=== PATIENT | female | born 1940 | race Caucasian/White ===

== ENCOUNTER 2016-11-27 09:12 | Inpatient (IN) | payer OTHER ==
[~2016-11-27] VITALS: Ht 144.8 cm; Wt 39.3 kg
[~2016-11-27 09:12] MED LIST: ATOR10TA65 PO; FERR240T9 PO; LISI-327 PO
[2016-11-27] MEDS ORDERED: SOD CHLORIDE 0.9% 1,000 ML IV STA (09:47)
[2016-11-27 10:41] LABS: ABNORMAL IP MESSAGE 1; BASOPHILS % 0.2 % (0.0-2.0); EOSINOPHILS % 0.1 % (0.0-7.0); HEMATOCRIT 33.7 % (37.0-47.0); HEMOGLOBIN 11.6 g/dl (12.0-16.0); LYMPHOCYTES # 0.5 10^3/ul (0.8-2.9); LYMPHOCYTES % 3.1 % (15.0-51.0); MEAN CORPUSCULAR HEMOGLOBIN 29.4 pg (29.0-33.0); MEAN CORPUSCULAR HGB CONC 34.4 g/dl (32.0-37.0); MEAN CORPUSCULAR VOLUME 85.3 fl (82.0-101.0); MEAN PLATELET VOLUME 9.1 fl (7.4-10.4); MONOCYTE # 2.6 10^3/ul (0.3-0.9); NEUTROPHIL # 12.1 10^3/ul (1.6-7.5); NEUTROPHILS % 78.8 % (39.0-77.0); PLATELET COUNT 317 10^3/UL (140-415); RED BLOOD COUNT 3.95 10^6/ul (4.20-5.40); RED CELL DISTRIBUTION WIDTH 13.8 % (11.5-14.5); WHITE BLOOD COUNT 15.3 10^3/ul (4.8-10.8)
[2016-11-27 10:42] LABS: POSITIVE DIFF @See below
[2016-11-27 10:57] LABS: PT RATIO 1.1
[2016-11-27] MEDS ORDERED: NOL20 PO (10:57)
[2016-11-27] MEDS ORDERED: CALC500T11 PO (10:58)
[2016-11-27] MEDS ORDERED: MULT-902 PO (10:58)
[2016-11-27 10:59] LABS: ALBUMIN 4.3 g/dl (3.3-4.9); ALBUMIN/GLOBULIN RATIO 1.43; CALCIUM 9.9 mg/dl (8.4-10.2); CREATININE 0.45 mg/dl (0.44-1.00); PARTIAL THROMBOPLASTIN TIME 30.6 Sec (25.0-35.0); POTASSIUM 3.3 mmol/L (3.5-5.1); TOTAL PROTEIN 7.3 g/dl (6.1-8.1)
[2016-11-27 11:15] LABS: PROTIME 14.2 Sec (12.2-14.2)
[2016-11-27 11:16] LABS: INR 1.1
--- NOTE | 2016-11-27 11:52 | RADRPT ---
AMENDMENT: 11/27/2016 11:56:01 AM Morris Stubbs M.D The above findings were discussed with Patient's physician Emily Morin by on 11/27/2016 11:56: 00 AM. PROCEDURE: CT Lumbar Spine without contrast. CLINICAL INDICATION: Lumbar spine pain status post fall. TECHNIQUE: The study was performed on a multislice multidetector CT scanner. Spiral axial 1 mm im ages were obtained through the lumbar spine without intravenous contrast. 1 or more of the following dose reduction techniques were utilized: Automated exposure control, adjustment of the mA and/or k V according to patient's size, iterative reconstruction technique. Coronal and sagittal reformation s were obtained. The images were reviewed on a PACS workstation. RADIATION DOSE: CTDIvol: 4.3 mGyDLP: 128.1 mGy-cm COMPARISON: No prior studies are available for comparison. FINDINGS: There is diffuse severe spondylosis from L3-4 to L5-S1. There is a severe left convex scoliosis cent ered at L4 with asymmetric right-sided disc-space height at L3-4 45. There are associated moderate d iscogenic endplate changes at these levels. There is a mild right convex scoliosis centered at L5-S1 with severe right-sided disc-space height loss. Partial visualization of the T10 vertebral body at the superior margin of the film demonstrates a central compression deformity, with possible linear l ow density in the posterior aspect of the body (sagittal series image), concerning for possible acut e fracture. The. There is 10% right-sided vertebral body height loss at L4, likely related to the se jaxon spondylosis. The remaining vertebral body heights are maintained. There is diffuse moderate ost eopenia. There are diffuse calcified posterior discs at L1-2, L2-3, and L4-5. There are mild degener ate changes of the interspinous articulations from L2-L5 The paraspinal soft tissues unremarkable. No significant paraspinal soft tissue swelling. L1-L2: There is a 2-3 mm annular disc bulge the thecal sac is patent measuring 9.7 mm midline AP di ameter. There is mild narrowing of both lateral recesses. There is mild to moderate left and mild ri ght neural foraminal narrowing. There is mild bilateral facet spondylosis with buckling ligamentum f lavum. L2-L3: There is a 5-6 mm annular disc bulge. The thecal sac measures, measuring 6.5 mm in midline AP diameter. There is severe narrowing of 12 lateral recesses. There is moderate to severe bilater al neural foraminal narrowing. There is moderate bilateral facet spondylosis with buckling ligament um flavum. L3-L4: There is a 4-5 mm annular disc bulge asymmetric to the right foraminal region. There is mild to moderate bilateral facet hypertrophy. The thecal sac measures 7.7 mm midline AP diameter. There is severe right and moderate left lateral recess narrowing. There is severe right and mild to modera te left neural foraminal narrowing. L4-L5: There is a 6-7 mm right foraminal/far lateral disc bulge. There is moderate bilateral facet spondylosis with prominent buckling of the ligamentum flavum. The thecal sac measures 7.0 mm midline AP diameter. There is severe narrowing of both lateral recesses, right worse than left. There is se jaxon right and moderate left neural foraminal narrowing. L5-S1: There is a 4 mm annular disc bulge asymmetric to the left foraminal/far lateral region. The thecal sac is patent. There is moderate left lateral recess narrowing. The right lateral recess bunny ears patent. There is severe left and moderate to severe right neural foraminal narrowing. IMPRESSION: 1. Central compression deformity of the T10 vertebral body, age indeterminate. There is a linear lo w density in the posterior aspect of the vertebral body, concerning for possible acute fracture. MRI is recommended for further evaluation. 2. Chronic 10% right L4 vertebral body compression deformity, likely related to severe spondylosis. If clinical concern for acute fracture, MRI would be helpful for further evaluation. 3. Multilevel moderate to severe spondylosis from L2-3 to L5-S1 with severe spinal stenosis at L2-3 and moderate to severe spinal stenosis at L3-4 and L4-5. There are associated lateral recess narrow ings at these levels. 4. Multilevel facet spondylosis superimposed on S-shaped scoliosis with severe narrowing of the olesya ateral L2-3, right L3-4, right L4-5 and left L5-S1 foramina. RPTAT: HGAS .Js Sigmund, MD, MD Date Time Electronically viewed and signed by .Js Stubbs MD, on 11/27/2016 11:56 .S/
--- NOTE | 2016-11-27 12:13 | ERA ---
ER Documentation Chief Complaint Date/Time DATE: 11/27/16 TIME: 12:08 Chief Complaint MECHANICAL FALL ON TRACEE VANESSA This is a very pleasant 76-year-old female who lives alone and is able to attend her activities of daily living with a history of high cholesterol and osteopenia. She presents to the emergency department brought in by EMS after she stated she had a mechanical fall while getting up from her bed to go to the bathroom just prior to arrival. She landed on a carpeted surface. She stated she did not hit her head or lose consciousness. She is complaining of severe pain in her lower back. She was unable to get up to ambulate and when 911 arrived they stated the patient had no complaints of neck pain or numbness that the pain was localized to the mid and lower back. She denies any chest pain or pressure that radiates to the neck or back or jaw. ROS All systems reviewed and are negative except as per history of present illness. Medications Home Meds Reported Medications Multivitamin/Iron/Folic Acid (Centrum Adults Tablet) 1 Each Tablet, 1 EACH PO DAILY, TAB 11/27/16 Calcium Carbonate (Oysco-500) 500 Mg Tablet, 500 MG PO DAILY, TAB 11/27/16 Tamoxifen Citrate* (Tamoxifen Citrate*) 20 Mg Tab, 20 MG PO DAILY, TAB 11/27/16 Lisinopril-Hydrochlorothiazide (Lisinopril-HCTZ) 20-12.5 Mg Tab, 1 TAB PO DAILY , TAB 06/16/14 Ferrous Gluconate (Iron) 1 Tab Tablet, 1 TAB PO DAILY 06/16/14 Atorvastatin Calcium (Atorvastatin Calcium) 10 Mg Tab, 10 MG PO HS, TAB 06/16/14 Allergies Allergies: Coded Allergies: aspirin (Unverified Allergy, Severe, 11/27/16) ciprofloxacin (Unverified Allergy, Severe, 11/27/16) codeine (Verified Allergy, Mild, DIZZY, 06/16/14) Uncoded Allergies: [id number] (ADVIL) (Allergy, Mild, NOSEBLEED, 03/20/10) PMhx/Soc History of Surgery: No Anesthesia Reaction: No Hx Neurological Disorder: No Hx Respiratory Disorders: No Hx Cardiac Disorders: Yes (HIGH CHOLESTEROL, HTN) Hx Psychiatric Problems: No Hx Miscellaneous Medical Probl: No Hx Alcohol Use: Yes Hx Substance Use: No Hx Tobacco Use: No Smoking Status: Never smoker Physical Exam Vitals Vital Signs Date Time Temp Pulse Resp B/P Pulse Ox O2 Delivery O2 Flow Rate FiO2 11/27/16 09:17 98.0 107 18 134/82 98 Physical Exam Constitutional:Well-developed. Cachectic HEENT:Normocephalic. Atraumatic.Pupils were equal round reactive to light. Dry mucous membranes.No tonsillar exudates. Neck: No nuchal rigidity. No lymphadenopathy. No posterior cervical spine tenderness or step-offs. Respiratory: Not using accessory muscles of respiration.Lungs were clear to auscultation bilaterally. No rhonchi. No rales. No wheezing. Cardiovascular: Regular rate regular rhythm.No murmurs. No rubs were appreciated.S1, S2 normal. Distal pulses are palpable 2+ bilaterally. GI: Abdomen was soft. Nontender. Non Distended. No pulsatile abdominal masses or bruits. No rebound. No guarding. Bowel sounds were present and normal. Muscle skeletal: She had full range of motion of the upper and lower extremities. No laxity on anterior posterior or lateral compression of the hip. The patient was unable to ambulate due to severe pain and there is reproducible tenderness with palpation and percussion of the thoracic spinal level T10-T11 and L4 L5-S1. Skin: No petechia, no purpura. No lesions on the palms or the soles of the feet. No maculopapular rash. NEURO: Patient was alert, awake, orientated x3.No facial droop. Gait not observed due to severe pain..Speech had regular rate and rhythm. No focal neurological deficits. Result Diagram: 11/27/16 1032 11/27/16 1032 Results 24 hrs Laboratory Tests Test 11/27/16 10:32 White Blood Count 15.310^3/ul Red Blood Count 3.9510^6/ul Hemoglobin 11.6g/dl Hematocrit 33.7% Mean Corpuscular Volume 85.3fl Mean Corpuscular Hemoglobin 29.4pg Mean Corpuscular Hemoglobin Concent 34.4g/dl Red Cell Distribution Width 13.8% Platelet Count 08807^3/UL Mean Platelet Volume 9.1fl Neutrophils % 78.8% Lymphocytes % 3.1% Monocytes % 17.0% Eosinophils % 0.1% Basophils % 0.2% Nucleated Red Blood Cells % 0.0/100WBC Neutrophils # 12.110^3/ul Lymphocytes # 0.510^3/ul Monocytes # 2.610^3/ul Eosinophils # 0.010^3/ul Basophils # 0.010^3/ul Nucleated Red Blood Cells # 0.010^3/ul Prothrombin Time 14.2Sec Prothrombin Time Ratio 1.1 INR International Normalized Ratio 1.10 Activated Partial Thromboplast Time 30.6Sec Sodium Level 129mmol/L Potassium Level 3.3mmol/L Chloride Level 93mmol/L Carbon Dioxide Level 25mmol/L Anion Gap 14 Blood Urea Nitrogen 8mg/dl Creatinine 0.45mg/dl Glucose Level 125mg/dl Calcium Level 9.9mg/dl Total Bilirubin 1.0mg/dl Direct Bilirubin 0.00mg/dl Indirect Bilirubin 1.0mg/dl Aspartate Amino Transf (AST/SGOT) 31IU/L Alanine Aminotransferase (ALT/SGPT) 29IU/L Alkaline Phosphatase 57IU/L Total Protein 7.3g/dl Albumin 4.3g/dl Globulin 3.00g/dl Albumin/Globulin Ratio 1.43 Current Medications Medications (Trade) Dose Ordered Sig/Akash Route PRN Reason Start Time Stop Time Status Last Admin Dose Admin Sodium Chloride (NS) 1,000 ml @ 1,000 mls/hr Q1H STAT IV 11/27/16 09:47 11/27/16 10:46 DC 11/27/16 10:32 Procedures/MDM Patient presented to the emergency department with a mechanical ground-level fall prior to arrival. The patient was in a significant amount discomfort and immediately had IV access established by nursing staff placed on a cardiac nurse with continuous pulse oximetry. The patient ancillary laboratory work performed which showed hypernatremia but the patient appeared to be asymptomatic. She was treated with IV fluid normal saline. Given the severity of the patient's pain CT scan of the patient's pelvis and lumbar spine was ordered and reviewed by myself and the radiologist. The patient did appear to have a T10 fracture. I spoke with the radiologist and he did suggest an MRI of the thoracic and lumbar spine which is currently pending. I have placed a neurosurgical consult to Dr. Marie. The patient will be admitted in serious condition under the care of , with an anticipated stay of greater than 2 midnights. Given that the patient is nonambulatory she had a Gavin catheter placed and urinalysis is currently pending. The patient leukocytosis which was thought to be secondary to an acute stress reaction as the patient had no evidence of an infectious process. One view chest radiograph is also ordered and reviewed by myself and showed no evidence of a pneumothorax or rib fractures. Departure Diagnosis: Primary Impression: Fall with significant injury Qualified Code: W19.XXXA - Fall with significant injury, initial encounter Additional Impressions: Thoracic spine fracture Qualified Code: S22.070A - Closed wedge compression fracture of tenth thoracic vertebra, initial encounter Hyponatremia Condition: Serious JULES LE Nov 27, 2016 12:13
--- NOTE | 2016-11-27 12:15 | RADRPT ---
PROCEDURE: CT pelvis without contrast. CLINICAL INDICATION: Fall TECHNIQUE: CT scan of the pelvis without contrast was performed. The patient was scanned without intravenous contrast. Coronal and sagittal reformatted images were obtained from the axial source i mages. Use of iterative reconstruction technique was employed. Images were reviewed on a high-resolu tion PACS workstation. images. The calculated radiation dose measures 89.56 mGy centimeters. The CTD I measures 2.91 mGy. One or more of the following dose reduction techniques were used: - Automated exposure control. - Adjustment of the mA and/or kV according to patient size . - Use of iterative reconstruction technique. Images were reviewed on a high-resolution PACS workstation COMPARISON: None. FINDINGS: CT pelvis: Osseous structures: There is no acute osseous abnormality or CT evidence for fracture. There is a healed post fracture f orm at the left inferior pubic ramus. Moderate to severe narrowing is seen about the hip joints bila terally noting marginal productive changes and chondrocalcinosis about the joint. Small bilateral hi p joint effusions are present. Severe degenerative disc disease seen at the lower lumbar spine noting scoliosis convex left. Severe narrowing is seen at L3-L4 through L5-S1. Soft tissues: The small bowel loops situated within the pelvis are unremarkable. The pelvic organs are normal. T he pelvic sidewalls and inguinal regions are clear. The sigmoid colon and rectum are remarkable for sigmoid diverticulosis. No mass, lymphadenopathy, or free fluid is seen. No acute inflammation is seen. IMPRESSION: 1. No CT evidence for acute fracture. 2. Healed post fracture deformity of the left inferior pubic ramus. 3. Moderate bilateral hip arthrosis noting marked chondrocalcinosis. 4. Small bilateral hip joint effusions. 5. Advanced degenerative disc disease at the lower lumbar spine, better assessed on the dedicated C T from the same day. RPTAT: VV .Cesar Temple MD, MD Date Time Electronically viewed and signed by .Cesar Temple MD, MD on 11/27/2016 12:14 .d/
--- NOTE | 2016-11-27 13:15 | RADRPT ---
PROCEDURE: XR Chest. CLINICAL INDICATION: Trauma due to a fall. Chest pain. TECHNIQUE: Single frontal view. COMPARISON: None. FINDINGS: The lungs are clear. The heart size is normal. There is no pleural effusion or pneumothorax. There are severe degenerative changes of both glenohumeral joints with marked deformity. IMPRESSION: 1. Severe degenerative changes of both glenohumeral joints with marked deformity. 2. Otherwise normal chest x-ray. RPTAT: QQ .Sami Gutierres MD, Date Time Electronically viewed and signed by .Sami Gutierres MD, on 11/27/2016 13:14 .R/
--- NOTE | 2016-11-27 17:27 | HP ---
Date/Time of Note Date/Time of Note DATE: 11/27/16 TIME: 17:12 Assessment/Plan VTE Prophylaxis VTE Prophylaxis Intervention: LMWH Lines/Catheters Urinary Cath still in place: Yes Reason Cath still needed: other (indicate) (Bed rest) Assessment/Plan Assessment/Plan 76-year-old female with: 1. Status post fall with T10 compression fracture possibly acute, inability to walk, patient with multiple falls, L4 compression fracture chronic. MRI thoracic and lumbar spine pending, patient on bedrest, Gavin catheter in place. Neurosurgery evaluation pending. Pain control Continue monitoring. 2. Hyponatremia, likely hypovolemic and also secondary to medications. Discontinue hydrochlorothiazide, IV fluids ordered. Monitor sodium level 3. Hypokalemia: Check magnesium level, replete potassium orally and through IV fluids. 4. Hypertension: Resume lisinopril, discontinue hydrochlorothiazide, hydralazine as needed 5. Osteopenia Prophylaxis: Lovenox for DVT prophylaxis, Pepcid for GI prophylaxis Disposition: MRI T and L-spine pending, neurosurgery evaluation pending, further disposition depending on MRI results and neurosurgical recommendations. HPI/ROS Admit Date/Time Admit Date/Time Nov 27, 2016 at 15:50 Hx of Present Illness Chief complaint: Status post fall and inability to walk History of presenting illness: This is a 76-year-old female with history of osteopenia, hypertension, hyperlipidemia and multiple falls who was brought into the emergency department by family after she fell every day over the past 3 days and was unable to ambulate. The patient lives alone, she is able to complete all her ADLs independently although she reports that she has not taken a shower for quite a while because she is concerned she is going to fall in the bathroom. She does report multiple falls at home but over the past 3 days, she has fallen every day and was unable to ambulate. The patient reports that 3 days ago, she was sitting on the toilet and she was unable to get up, she ended up sitting on the toilet for 5 hours, she was assisted to the bed by her family members. The next day she was unable to get out of bed and actually fell off the bed. Again unable to ambulate and finally yesterday it happened again and she was mostly bedbound over the past few days. This morning, she finally agreed to come to the hospital. On CAT scan of the lumbar spine and the thoracic spine she was found to have L4 chronic compression fractures and possibly T10 acute compressions fracture and injury and given her inability to walk, neurosurgery was notified, Dr. Marie, MRI of the thoracic and lumbar spines are still pending. Patient is admitted to medical surgical bed for pain management and monitoring. Patient denies any dizziness, chest pain, nausea, vomiting, urinary complaints including dysuria or hematuria. No recent infection. No cough, no shortness of breath ROS Constitutional: no complaints Eyes: no complaints ENT: no complaints Respiratory: no complaints Cardiovascular: no complaints Gastrointestinal: no complaints Genitourinary: no complaints Musculoskeletal: no complaints Skin: no complaints Neurologic: other (Unable to walk) Endocrine: no complaints PMH/Family/Social Past Medical History Hypertension Hyperlipidemia Osteopenia Past Surgical History Status post left mastectomy remotely Status post thyroidectomy according to patient remotely Family History Significant Family History: no pertinent family hx Social History Alcohol Use: other (2-3 beers every 2 weeks) Smoking Status: Never smoker Drug Use: none Exam/Review of Systems Vital Signs Vitals Vital Signs Date Time Temp Pulse Resp B/P Pulse Ox O2 Delivery O2 Flow Rate FiO2 11/27/16 15:07 91 18 118/59 11/27/16 09:17 98.0 98 Exam Constitutional: alert, frail, oriented (x4), other (Thin, elderly) Respiratory: clear to auscultation, normal air movement Cardiovascular: nl pulses, regular rate and rhythm Gastrointestinal: non-tender, soft Musculoskeletal: nl extremities to inspection Extremities: normal pulses, other (No edema, clubbing or cyanosis) Neurological: [employer]OR [employer] II-XII intact, nl mental status, nl speech, other (Bedbound, status post T10 compression fracture) Labs Result Diagram: 11/27/16 1032 11/27/16 1032 Medications Medications See admission reconciliation medications for home medication list Procedures Procedures MENDMENT: 11/27/2016 11:56:01 AM Morris Stubbs M.D The above findings were discussed with Patient's physician Emily Morin by on 11/27/2016 11:56:00 AM. PROCEDURE: CT Lumbar Spine without contrast. CLINICAL INDICATION: Lumbar spine pain status post fall. TECHNIQUE: The study was performed on a multislice multidetector CT scanner. Spiral axial 1 mm images were obtained through the lumbar spine without intravenous contrast. 1 or more of the following dose reduction techniques were utilized: Automated exposure control, adjustment of the mA and/or kV according to patient's size, iterative reconstruction technique. Coronal and sagittal reformations were obtained. The images were reviewed on a PACS workstation. RADIATION DOSE: CTDIvol: 4.3 mGy DLP: 128.1 mGy-cm COMPARISON: No prior studies are available for comparison. FINDINGS: There is diffuse severe spondylosis from L3-4 to L5-S1. There is a severe left convex scoliosis centered at L4 with asymmetric right-sided disc-space height at L3-4 45. There are associated moderate discogenic endplate changes at these levels. There is a mild right convex scoliosis centered at L5-S1 with severe right-sided disc-space height loss. Partial visualization of the T10 vertebral body at the superior margin of the film demonstrates a central compression deformity, with possible linear low density in the posterior aspect of the body (sagittal series image), concerning for possible acute fracture. The. There is 10% right-sided vertebral body height loss at L4, likely related to the severe spondylosis. The remaining vertebral body heights are maintained. There is diffuse moderate osteopenia. There are diffuse calcified posterior discs at L1-2 , L2-3, and L4-5. There are mild degenerate changes of the interspinous articulations from L2-L5 The paraspinal soft tissues unremarkable. No significant paraspinal soft tissue swelling. L1-L2: There is a 2-3 mm annular disc bulge the thecal sac is patent measuring 9.7 mm midline AP diameter. There is mild narrowing of both lateral recesses. There is mild to moderate left and mild right neural foraminal narrowing. There is mild bilateral facet spondylosis with buckling ligamentum flavum. L2-L3: There is a 5-6 mm annular disc bulge. The thecal sac measures, measuring 6.5 mm in midline AP diameter. There is severe narrowing of 12 lateral recesses. There is moderate to severe bilateral neural foraminal narrowing. There is moderate bilateral facet spondylosis with buckling ligamentum flavum. L3-L4: There is a 4-5 mm annular disc bulge asymmetric to the right foraminal region. There is mild to moderate bilateral facet hypertrophy. The thecal sac measures 7.7 mm midline AP diameter. There is severe right and moderate left lateral recess narrowing. There is severe right and mild to moderate left neural foraminal narrowing. L4-L5: There is a 6-7 mm right foraminal/far lateral disc bulge. There is moderate bilateral facet spondylosis with prominent buckling of the ligamentum flavum. The thecal sac measures 7.0 mm midline AP diameter. There is severe narrowing of both lateral recesses, right worse than left. There is severe right and moderate left neural foraminal narrowing. L5-S1: There is a 4 mm annular disc bulge asymmetric to the left foraminal/far lateral region. The thecal sac is patent. There is moderate left lateral recess narrowing. The right lateral recess appears patent. There is severe left and moderate to severe right neural foraminal narrowing. IMPRESSION: 1. Central compression deformity of the T10 vertebral body, age indeterminate. There is a linear low density in the posterior aspect of the vertebral body, concerning for possible acute fracture. MRI is recommended for further evaluation. 2. Chronic 10% right L4 vertebral body compression deformity, likely related to severe spondylosis. If clinical concern for acute fracture, MRI would be helpful for further evaluation. 3. Multilevel moderate to severe spondylosis from L2-3 to L5-S1 with severe spinal stenosis at L2-3 and moderate to severe spinal stenosis at L3-4 and L4- 5. There are associated lateral recess narrowings at these levels. 4. Multilevel facet spondylosis superimposed on S-shaped scoliosis with severe narrowing of the bilateral L2-3, right L3-4, right L4-5 and left L5-S1 foramina. RPTAT: HGAS LEONARDO SHETTY Nov 27, 2016 17:22
[2016-11-27] MEDS ORDERED: DOCUSATE SODIUM 100 MG CAP PO PRN (17:30)
[2016-11-27] MEDS ORDERED: HYDROCODONE/APAP (5/325) TAB PO PRN (17:30)
[2016-11-27] MEDS ORDERED: ACETAMINOPHEN 325 MG TAB PO PRN (17:30)
[2016-11-27] MEDS ORDERED: ONDANSETRON 4 MG INJ IV PRN (17:30)
[2016-11-27] MEDS ORDERED: BISACODYL 10 MG SUPP PR PRN (17:30)
[2016-11-27] MEDS ORDERED: NACL 0.9% 3 ML SYG IV SCH (17:30)
[2016-11-27] MEDS ORDERED: POTASSIUM CHLORIDE (SR) 20 MEQ TAB PO STA (17:32)
[2016-11-27 17:38] VITALS: Ht 144.8 cm; Wt 39.3 kg
[2016-11-27] MEDS: morphine 2 MG INJ IV PRN (17:51)
[2016-11-27] MEDS ORDERED: hydrALAzine 20 MG INJ IV PRN (18:00)
[2016-11-27 18:27] VITALS: BP 129/80; PULSE 86; RESP 20
[2016-11-27 20:09] VITALS: BP 115/64; RESP 20
[2016-11-27] MEDS: NS + KCL 20 MEQ 1,000 ML IV SCH (20:24)
[2016-11-27] MEDS: ATORVASTATIN 10 MG TAB PO SCH (20:24)
[2016-11-27] MEDS: FAMOTIDINE 20 MG TAB PO SCH (20:25)
--- NOTE | 2016-11-27 20:52 | RADRPT ---
PROCEDURE: MRI thoracic spine without contrast CLINICAL INDICATION: Follow-up thoracic fracture TECHNIQUE: An MRI of the thoracic spine was performed on a GE 3.0 Niru MRI scanner utilizing the following sequences: Sagittal and axial T1 weighted, sagittal and axial T2 weighted, and sagittal T2 fat saturation COMPARISON: CT lumbar spine 11/27/2016 FINDINGS: There is a normal kyphosis of the thoracic spine. The vertebral body heights are remarkable for 8 c hronic appearing compression fracture deformity of the T10 vertebral body with approximately 50% tonie tebral body height loss centrally. A large Schmorl's node is also noted at the superior endplate of T10. No evidence for fractures of the T12 vertebral body are noted. The vertebral body signal intens ities are normal. The intervertebral discs demonstrate disc desiccation at the T1-2 through L2-3 lev els. The visualized posterior elements are intact and well aligned. The thoracic cord terminates no rmally at the L1-2 level. The visualized paravertebral soft tissues are normal. At all axial levels imaged in the thoracic spine, no focal disc extrusions, central canal, subarticular recess or neural foraminal stenosis is present. At T12-L1: A 2 mm annular bulge is present. The central canal, subarticular recess and neural isabel en are patent. L1-2: A 4 mm moderate broad-based bulge is present. AP canal dimension is 9.7 mm. This results in a mild central, bilateral subarticular recess stenosis and mild right and moderate left neural forami nal stenosis. L2-3: A large 5 mm broad-based bulge is present. Mild bilateral facet arthropathy and facet effusio ns are present. AP canal dimension is approximately 6.1 mm. This results in a moderate central canal stenosis, bilateral severe subarticular recess stenosis and severe bilateral neural foraminal steno sis. IMPRESSION: 1. No evidence for acute fractures , traumatic subluxations or significant stenosis within the tho racic spine. 2. Chronic T10 vertebral body compression fracture with approximately 50% vertebral body height lo ss. 3. Multilevel broad-based bulges at the T12-L1 through L2-3 levels with moderate to severe central canal stenosis at L2-3 and mild at L1-2. RPTAT: HD .Chantell Li MD, MD Date Time Electronically viewed and signed by .Chantell Li MD, MD on 11/27/2016 20:51 .C/
--- NOTE | 2016-11-27 21:31 | CONS ---
Date/Time of Note Date/Time of Note DATE: 11/27/16 TIME: 21:25 Assessment/Plan Assessment/Plan Problems: (1) Thoracic spine fracture Status: Acute Qualifiers: Qualified Code: S22.070A - Closed wedge compression fracture of tenth thoracic vertebra, initial encounter Additional Assessment/Plan imaging suggests chronic fracture with ~50% loss of height and no significant canal compromise. possibly related to osteopenia/ osteoporosis. May wish to consider calcium supplementation or further work up for osteoporosis. Stable fracture pattern in any event, not requiring intervention. Consider kyphoplasty by IR if patient pain recurs, though generally kyphoplasty success rate for chronic fractures very low. In any event this patient does not need any neurosurgical intervention. I will sign off thank you. Consultation Date/Type/Reason Admit Date/Time Nov 27, 2016 at 15:50 Date of Consultation: Nov 27, 2016 Type of Consultation: neurosurgery Reason for Consultation T10 fracture Hx of Present Illness 76 year old female was admitted s/p [facility] with complaint of back pain. At the present time she denies any back pain. CT showed T10 compression fracture, "possibly acute", so an MRI was recommended. The MRI confirms 1) chronic fracture, 2) no impingement of the neural elements. Neurosurgery consultation requested for this chronic finding in a cachectic 76 year old who no longer complains of back pain and has no neurologic complaints, deficits, or canal compromise on MRI. Eyes: no complaints ENT: no complaints Respiratory: no complaints Cardiovascular: no complaints Gastrointestinal: no complaints Genitourinary: no complaints Musculoskeletal: no complaints Skin: no complaints Neurologic: other (Unable to walk) Social History Alcohol Use: other (2-3 beers every 2 weeks) Smoking Status: Never smoker Drug Use: none Exam/Review of Systems Vital Signs Vitals Vital Signs Date Time Temp Pulse Resp B/P Pulse Ox O2 Delivery O2 Flow Rate FiO2 11/27/16 20:22 98.9 11/27/16 20:09 104 20 115/64 97 11/27/16 18:27 Room Air Exam Constitutional: frail Psych: depression Head: atraumatic, normocephalic Eyes: EOMI, nl conjunctiva, nl lids ENMT: nl external ears & nose, nl lips & teeth Neck: non-tender, supple Neurological: OPEN SOAPER TENDER II-XII intact, nl mental status, nl speech, nl strength Skin: nl turgor, rash or lesions Results Result Diagram: 11/27/16 1032 11/27/16 1032 Results 24 hrs Laboratory Tests Test 11/27/16 10:32 White Blood Count 15.3 #H Red Blood Count 3.95 L Hemoglobin 11.6 L Hematocrit 33.7 L Mean Corpuscular Volume 85.3 Mean Corpuscular Hemoglobin 29.4 Mean Corpuscular Hemoglobin Concent 34.4 Red Cell Distribution Width 13.8 # Platelet Count 317 Mean Platelet Volume 9.1 Neutrophils % 78.8 H Lymphocytes % 3.1 L Monocytes % 17.0 H Eosinophils % 0.1 Basophils % 0.2 Nucleated Red Blood Cells % 0.0 Neutrophils # 12.1 H Lymphocytes # 0.5 L Monocytes # 2.6 H Eosinophils # 0.0 Basophils # 0.0 Nucleated Red Blood Cells # 0.0 Prothrombin Time 14.2 Prothrombin Time Ratio 1.1 INR International Normalized Ratio 1.10 Activated Partial Thromboplast Time 30.6 Sodium Level 129 L Potassium Level 3.3 L Chloride Level 93 L Carbon Dioxide Level 25 Anion Gap 14 Blood Urea Nitrogen 8 Creatinine 0.45 Glucose Level 125 Calcium Level 9.9 Total Bilirubin 1.0 Direct Bilirubin 0.00 Indirect Bilirubin 1.0 Aspartate Amino Transf (AST/SGOT) 31 Alanine Aminotransferase (ALT/SGPT) 29 Alkaline Phosphatase 57 Total Protein 7.3 Albumin 4.3 Globulin 3.00 Albumin/Globulin Ratio 1.43 Medications Medications Current Medications Atorvastatin Calcium (Lipitor) 10 mg HS PO Last administered on 11/27/16t 20:24 ; Admin Dose 10 MG; Start 11/27/16 at 21:00 Calcium Carbonate (Oyster Shell Calcium) 1.25 gm DAILY PO ; Start 11/28/16 at 09 :00 Tamoxifen Citrate (Nolvadex) 20 mg DAILY PO ; Start 11/28/16 at 09:00 Ondansetron HCl (Zofran Inj) 4 mg Q6H PRN IV NAUSEA AND/OR VOMITING; Start at 17:30 Acetaminophen (Tylenol Tab) 650 mg Q6H PRN PO PAIN LEVEL 1-3 OR FEVER; Start at 17:30 Acetaminophen/ Hydrocodone Bitart (Pound (5/325)) 1 tab Q6H PRN PO MODERATE PAIN LEVEL 4-6; Start 11/27/16 at 17:30 Acetaminophen/ Hydrocodone Bitart (Pound (5/325)) 2 tab Q6H PRN PO SEVERE PAIN LEVEL 7-10; Start 11/27/16 at 17:30 Morphine Sulfate (morphine) 2 mg Q4H PRN IV SEVERE PAIN LEVEL 7-10 Last administered on 11/27/16 17:51; Admin Dose 2 MG; Start 11/27/16 at 17:30 Docusate Sodium (Colace) 100 mg Q12H PRN PO CONSTIPATION; Start 11/27/16 at 17: 30 Magnesium Hydroxide (Milk Of Mag) 30 ml DAILY PRN PO CONSTIPATION; Start at 17:30 Bisacodyl (Dulcolax Supp) 10 mg DAILY PRN ME CONSTIPATION; Start 11/27/16 at 17 :30 Famotidine (Pepcid) 20 mg Q12 PO Last administered on 11/27/16 20:25; Admin Dose 20 MG; Start 11/27/16 at 21:00 Enoxaparin Sodium (Lovenox) 40 mg DAILY SC ; Start 11/28/16 at 09:00 Multivitamins Therapeutic (Theragran) 1 tab DAILY PO ; Start 11/28/16 at 09:00 Ferrous Sulfate (Ferrous Sulfate (Ec)) 325 mg DAILY PO ; Start 11/28/16 at 09:00 Hydralazine HCl (Apresoline) 10 mg Q8H PRN IV ELEVATED BLOOD PRESSURE; Start at 18:00 Lisinopril 10 mg 10 mg DAILY PO ; Start 11/28/16 at 09:00 Potassium Chloride/Sodium Chloride (NS-KCl 20 Meq) 1,000 ml @ 100 mls/hr Q10H IV Last administered on 11/27/16 20:24; Admin Dose 100 MLS/HR; Start 11/27/16 at 18:00 MERY LOPES MD Nov 27, 2016 21:31
--- NOTE | 2016-11-27 22:34 | RADRPT ---
PROCEDURE: MRI lumbar spine CLINICAL INDICATION: Back pain and suspect T12 fracture TECHNIQUE: An MRI of the lumbar spine was performed on a high resolution high definition, MRI scan ner utilizing the following sequences: Sagittal T1 weighted, sagittal and axial T2 weighted, and sa gittal T2 weighted with fat saturation. COMPARISON: CT lumbar spine 11/27/2016 FINDINGS: There is diffuse severe spondylosis and levoscoliosis again noted from the L3-4 through L5-S1 levels with apex at the L3-4 level. Grade 1 spondylolisthesis of 3 mm of L5 on S1 is present without evide nce for spondylolysis. Preservation of vertebral body heights are noted with Modic type 2 degenerati ve endplate changes at L2-3 through L5-S1 levels. Again noted is approximately 10% right-sided verte bral body height loss at L4 secondary to severe spondylosis of the lumbar spine. The intervertebral discs demonstrate disc desiccation from T12-L5 with severe disc space height loss and degenerative c hanges at L3-4 through L5-S1 levels. Moderate disc space height loss is noted at L2-3. The conus m edullaris terminates normally at the L1 level. The bilateral paravertebral soft tissues are normal. The specific axial levels are as follows: T12 - L1: Disc desiccation is present with a mild 2 mm broad-based bulge. Mild bilateral facet arth ropathy is present. The central canal, subarticular recesses are patent. Mild bilateral neural isabel inal stenosis is present . L1 - L2: Disc desiccation is present. A mild 2 mm broad-based bulge is present. Moderate bilateral facet arthropathy and ligamentum hypertrophy is present. AP canal dimension is 10 mm. This results i n a mild central canal stenosis, bilateral subarticular recess stenosis, mild to moderate left neura l foraminal stenosis and mild right neural foraminal stenosis is present. L2 - L3: Disc desiccation is present with mild disc space height loss. A mild 3 mm broad-based bulg e is present. Moderate bilateral facet arthropathy and ligamentum hypertrophy is present. AP canal d imension is 5.4 mm. This results in a severe central canal stenosis, bilateral subarticular recess s tenosis and severe bilateral neural foraminal stenosis. L3 - L4: Severe degenerative endplate and disc desiccation is present with severe disc space height loss. A 5 mm right subarticular recess disc osteophyte complex is present superimposed on an eccent lidia 3 mm bulge to the left. AP canal dimension is 7.8 mm. Moderate bilateral facet arthropathy is pr esent. This results in a moderate central canal stenosis, severe right and moderate left subarticula r recess stenosis, and severe right and moderate left neural foraminal stenosis. L4 - L5: Severe degenerative endplate changes disc desiccation and disc space height loss is presen t. A 4 mm moderate broad-based bulge is present. Moderate bilateral facet arthropathy is present. AP canal dimension is 7.9 mm. Moderate central canal stenosis, severe bilateral subarticular recess st enosis and severe right greater than left neural foraminal stenosis. L5 - S1: Severe disc space height loss degenerative endplate and disc desiccation is present. Grade 1 spondylolisthesis of L5 and S1 is again noted without evidence for spondylolysis per 4 mm moderat e osteophytic bar and bulge is present. AP canal dimension is 10 mm. Mild central canal stenosis, mo derate left subarticular recess stenosis, and severe left greater than right neural foraminal stenos is is present. IMPRESSION: 1. No evidence for acute fractures or traumatic subluxations. 2. Severe levoscoliosis with apex at the L3-4 level and grade 1 spondylolisthesis of L5 and S1 with out evidence for spondylolysis. 3. Multilevel broad-based disc bulges at the T12-L1 through L5-S1 levels with severe central canal stenosis at L2-3, moderate L3-4 and L4-5 and mild at L1-2 and L5-S1. 4. Multilevel neural foraminal stenosis at the T12-L1 through L5-S1 levels as noted above. 5. Multilevel facet and ligamentum flavum osteoarthropathy. RPTAT: HDC .Chantell Li MD, MD Date Time Electronically viewed and signed by .Chantell Li MD, MD on 11/27/2016 22:34 .C/
[2016-11-28] MEDS: HYDROCODONE/APAP (5/325) TAB PO PRN ×2 (03:34→16:01)
[2016-11-28] MEDS: NS + KCL 20 MEQ 1,000 ML IV SCH ×3 (04:00→23:48)
[2016-11-28 05:17] LABS: ABNORMAL IP MESSAGE 1; BASOPHILS % 0.2 % (0.0-2.0); HEMATOCRIT 27.9 % (37.0-47.0); HEMOGLOBIN 9.3 g/dl (12.0-16.0); LYMPHOCYTES # 0.8 10^3/ul (0.8-2.9); LYMPHOCYTES % 6.4 % (15.0-51.0); MEAN CORPUSCULAR HEMOGLOBIN 28.7 pg (29.0-33.0); MEAN CORPUSCULAR HGB CONC 33.3 g/dl (32.0-37.0); MEAN CORPUSCULAR VOLUME 86.1 fl (82.0-101.0); MEAN PLATELET VOLUME 9.9 fl (7.4-10.4); MONOCYTE # 2.6 10^3/ul (0.3-0.9); MONOCYTES % 20.1 % (0.0-11.0); NEUTROPHIL # 9.3 10^3/ul (1.6-7.5); NEUTROPHILS % 72.8 % (39.0-77.0); PLATELET COUNT 291 10^3/UL (140-415); RED BLOOD COUNT 3.24 10^6/ul (4.20-5.40); RED CELL DISTRIBUTION WIDTH 14.2 % (11.5-14.5); WHITE BLOOD COUNT 12.8 10^3/ul (4.8-10.8)
[2016-11-28 05:42] LABS: ALBUMIN/GLOBULIN RATIO 1.03; BILIRUBIN,INDIRECT 0.6 mg/dl (0-1.1); BILIRUBIN,TOTAL 0.6 mg/dl (0.2-1.3); CALCIUM 9.1 mg/dl (8.4-10.2); CHOL/HDL RATIO 1.6 RATIO; CREATININE 0.41 mg/dl (0.44-1.00); MAGNESIUM 1.4 mg/dl (1.7-2.5); PHOSPHORUS 2.9 mg/dl (2.5-4.9); POTASSIUM 4.2 mmol/L (3.5-5.1); TOTAL PROTEIN 5.9 g/dl (6.1-8.1)
[2016-11-28 05:52] LABS: POSITIVE DIFF @See below
[2016-11-28 06:07] LABS: THYROID STIMULATING HORMONE 1.13 MIU/L (0.465-4.680)
[2016-11-28] MEDS: FERROUS SULFATE (EC) 325 MG TAB PO SCH ×2 (08:35→09:30)
[2016-11-28] MEDS: MULTIVITAMINS THERAPEUTIC TAB PO SCH (08:35)
[2016-11-28] MEDS: LISINOPRIL 10 MG TAB PO SCH (08:36)
[2016-11-28] MEDS: FAMOTIDINE 20 MG TAB PO SCH ×2 (08:36→21:48)
[2016-11-28 08:40] VITALS: BP 114/56; RESP 20
[2016-11-28] MEDS: TAMOXIFEN 10 MG TAB PO SCH (08:47)
[2016-11-28] MEDS: ENOXAPARIN 40 MG/0.4 ML SYG SC SCH (08:47)
[2016-11-28] MEDS ORDERED: CALCIUM CARBONATE 1.25 GM TAB PO SCH (09:00)
[2016-11-28] MEDS ORDERED: MAGNESIUM SULFATE 4 GM/100 ML 100 ML IVPB ONE (09:00)
--- NOTE | 2016-11-28 15:43 | PN ---
Date/Time of Note Date/Time of Note DATE: 11/28/16 TIME: 15:34 Assessment/Plan VTE Prophylaxis VTE Prophylaxis Intervention: SCD's Lines/Catheters IV Catheter Type (from Nrsg): Peripheral IV Urinary Cath still in place: Yes Reason Cath still needed: other (indicate) (will discontinue ) Assessment/Plan Assessment/Plan 76-year-old female with: 1. Status post fall with T10 compression fracture chronic on MRI, inability to walk, patient with multiple falls, L4 compression fracture chronic. s/p MRI thoracic and lumbar spine. Appreciate Neurosurgery evaluation, no need for surgical intervention, PT eval and TLSO brace ordered. Pain control Will need SNF placement for PT . 2. Hyponatremia, likely hypovolemic and also secondary to medications? but Na down to 125 with IVF Discontinue IV fluids 1L fluid restriction NaCl tabs Monitor sodium level 3. Hypokalemia: repleted, repleting Mag this AM. 4. Hypertension: Continue lisinopril, discontinue hydrochlorothiazide, hydralazine as needed 5. Osteopenia: CA/VitD supplements. Prophylaxis: Lovenox for DVT prophylaxis, Pepcid for GI prophylaxis Disposition: Hyponatremia management and will need SNF placement Subjective 24 Hr Interval Summary Free Text/Dictation Patient remains stable, appreciate recs from Neurosurgery. Still with Hyponatremia and Na down to 125 PT and SNF placement tomorrow Exam/Review of Systems Vital Signs Vitals Vital Signs Date Time Temp Pulse Resp B/P Pulse Ox O2 Delivery O2 Flow Rate FiO2 11/28/16 08:40 98.5 81 20 114/56 98 11/27/16 18:27 Room Air Intake and Output 11/27/16 11/27/16 11/28/16 15:00 23:00 07:00 Intake Total 1480 ml Output Total 800 ml Balance 680 ml Exam Constitutional: alert, frail, oriented (x4), other Respiratory: clear to auscultation, normal air movement Cardiovascular: nl pulses, regular rate and rhythm Gastrointestinal: non-tender, soft Musculoskeletal: nl extremities to inspection Extremities: normal pulses, other (no edema. clubbing or cyanosis ) Neurological: MARKETING COPYWRITER II-XII intact, nl mental status, nl speech, other ( generalized weakness ) Results Result Diagram: 11/28/16 0441 11/28/16 1249 Results 24 hrs Laboratory Tests Test 11/28/16 04:41 11/28/16 12:49 White Blood Count 12.8 H Red Blood Count 3.24 L Hemoglobin 9.3 L Hematocrit 27.9 L Mean Corpuscular Volume 86.1 Mean Corpuscular Hemoglobin 28.7 L Mean Corpuscular Hemoglobin Concent 33.3 Red Cell Distribution Width 14.2 Platelet Count 291 Mean Platelet Volume 9.9 Neutrophils % 72.8 Lymphocytes % 6.4 L Monocytes % 20.1 H Eosinophils % 0.0 Basophils % 0.2 Nucleated Red Blood Cells % 0.0 Neutrophils # 9.3 H Lymphocytes # 0.8 Monocytes # 2.6 H Eosinophils # 0.0 Basophils # 0.0 Nucleated Red Blood Cells # 0.0 Sodium Level 128 L 125 L Potassium Level 4.2 Chloride Level 101 Carbon Dioxide Level 23 Anion Gap 8 Blood Urea Nitrogen 7 Creatinine 0.41 L Glucose Level 128 Calcium Level 9.1 Phosphorus Level 2.9 Magnesium Level 1.4 L Total Bilirubin 0.6 Direct Bilirubin 0.00 Indirect Bilirubin 0.6 Aspartate Amino Transf (AST/SGOT) 19 Alanine Aminotransferase (ALT/SGPT) 29 Alkaline Phosphatase 55 Total Protein 5.9 #L Albumin 3.0 #L Globulin 2.90 Albumin/Globulin Ratio 1.03 Triglycerides Level 33 Cholesterol Level 91 L LDL Cholesterol, Calculated 28 HDL Cholesterol 56 Cholesterol/HDL Ratio 1.6 Thyroid Stimulating Hormone (TSH) 1.130 Free Thyroxine 1.07 Medications Medications Current Medications Atorvastatin Calcium (Lipitor) 10 mg HS PO Last administered on 11/27/16 20:24 ; Admin Dose 10 MG; Start 11/27/16 at 21:00 Calcium Carbonate (Oyster Shell Calcium) 1.25 gm DAILY PO Last administered on 11/28/16 08:35; Admin Dose 1.25 GM; Start 11/28/16 at 09:00 Tamoxifen Citrate (Nolvadex) 20 mg DAILY PO Last administered on 11/28/16 08: 47; Admin Dose 20 MG; Start 11/28/16 at 09:00 Ondansetron HCl (Zofran Inj) 4 mg Q6H PRN IV NAUSEA AND/OR VOMITING; Start at 17:30 Acetaminophen (Tylenol Tab) 650 mg Q6H PRN PO PAIN LEVEL 1-3 OR FEVER; Start at 17:30 Acetaminophen/ Hydrocodone Bitart ([place] (5/325)) 1 tab Q6H PRN PO MODERATE PAIN LEVEL 4-6 Last administered on 11/28/16 03:34; Admin Dose 1 TAB; Start at 17:30 Acetaminophen/ Hydrocodone Bitart ([place]raine (5/325)) 2 tab Q6H PRN PO SEVERE PAIN LEVEL 7-10; Start 11/27/16 at 17:30 Morphine Sulfate (morphine) 2 mg Q4H PRN IV SEVERE PAIN LEVEL 7-10 Last administered on 11/27/16 17:51; Admin Dose 2 MG; Start 11/27/16 at 17:30 Docusate Sodium (Colace) 100 mg Q12H PRN PO CONSTIPATION; Start 11/27/16 at 17: 30 Magnesium Hydroxide (Milk Of Mag) 30 ml DAILY PRN PO CONSTIPATION; Start at 17:30 Bisacodyl (Dulcolax Supp) 10 mg DAILY PRN NE CONSTIPATION; Start 11/27/16 at 17 :30 Famotidine (Pepcid) 20 mg Q12 PO Last administered on 11/28/16 08:36; Admin Dose 20 MG; Start 11/27/16 at 21:00 Enoxaparin Sodium (Lovenox) 40 mg DAILY SC Last administered on 11/28/16 08:47 ; Admin Dose 40 MG; Start 11/28/16 at 09:00 Multivitamins Therapeutic (Theragran) 1 tab DAILY PO Last administered on 08:35; Admin Dose 1 TAB; Start 11/28/16 at 09:00 Ferrous Sulfate (Ferrous Sulfate (Ec)) 325 mg DAILY PO Last administered on 09:30; Admin Dose 325 MG; Start 11/28/16 at 09:00 Hydralazine HCl (Apresoline) 10 mg Q8H PRN IV ELEVATED BLOOD PRESSURE; Start at 18:00 Lisinopril 10 mg 10 mg DAILY PO Last administered on 11/28/16 08:36; Admin Dose 10 MG; Start 11/28/16 at 09:00 Potassium Chloride/Sodium Chloride (NS-KCl 20 Meq) 1,000 ml @ 100 mls/hr Q10H IV Last administered on 11/28/16 05:55; Admin Dose 100 MLS/HR; Start 11/27/16 at 18:00 Procedures Procedures PROCEDURE: MRI lumbar spine CLINICAL INDICATION: Back pain and suspect T12 fracture TECHNIQUE: An MRI of the lumbar spine was performed on a high resolution high definition, MRI scanner utilizing the following sequences: Sagittal T1 weighted , sagittal and axial T2 weighted, and sagittal T2 weighted with fat saturation. COMPARISON: CT lumbar spine 11/27/2016 FINDINGS: There is diffuse severe spondylosis and levoscoliosis again noted from the L3-4 through L5-S1 levels with apex at the L3-4 level. Grade 1 spondylolisthesis of 3 mm of L5 on S1 is present without evidence for spondylolysis. Preservation of vertebral body heights are noted with Modic type 2 degenerative endplate changes at L2-3 through L5-S1 levels. Again noted is approximately 10% right- sided vertebral body height loss at L4 secondary to severe spondylosis of the lumbar spine. The intervertebral discs demonstrate disc desiccation from T12-L5 with severe disc space height loss and degenerative changes at L3-4 through L5- S1 levels. Moderate disc space height loss is noted at L2-3. The conus medullaris terminates normally at the L1 level. The bilateral paravertebral soft tissues are normal. The specific axial levels are as follows: T12 - L1: Disc desiccation is present with a mild 2 mm broad-based bulge. Mild bilateral facet arthropathy is present. The central canal, subarticular recesses are patent. Mild bilateral neural foraminal stenosis is present . L1 - L2: Disc desiccation is present. A mild 2 mm broad-based bulge is present. Moderate bilateral facet arthropathy and ligamentum hypertrophy is present. AP canal dimension is 10 mm. This results in a mild central canal stenosis, bilateral subarticular recess stenosis, mild to moderate left neural foraminal stenosis and mild right neural foraminal stenosis is present. L2 - L3: Disc desiccation is present with mild disc space height loss. A mild 3 mm broad-based bulge is present. Moderate bilateral facet arthropathy and ligamentum hypertrophy is present. AP canal dimension is 5.4 mm. This results in a severe central canal stenosis, bilateral subarticular recess stenosis and severe bilateral neural foraminal stenosis. L3 - L4: Severe degenerative endplate and disc desiccation is present with severe disc space height loss. A 5 mm right subarticular recess disc osteophyte complex is present superimposed on an eccentric 3 mm bulge to the left. AP canal dimension is 7.8 mm. Moderate bilateral facet arthropathy is present. This results in a moderate central canal stenosis, severe right and moderate left subarticular recess stenosis, and severe right and moderate left neural foraminal stenosis. L4 - L5: Severe degenerative endplate changes disc desiccation and disc space height loss is present. A 4 mm moderate broad-based bulge is present. Moderate bilateral facet arthropathy is present. AP canal dimension is 7.9 mm. Moderate central canal stenosis, severe bilateral subarticular recess stenosis and severe right greater than left neural foraminal stenosis. L5 - S1: Severe disc space height loss degenerative endplate and disc desiccation is present. Grade 1 spondylolisthesis of L5 and S1 is again noted without evidence for spondylolysis per 4 mm moderate osteophytic bar and bulge is present. AP canal dimension is 10 mm. Mild central canal stenosis, moderate left subarticular recess stenosis, and severe left greater than right neural foraminal stenosis is present. IMPRESSION: 1. No evidence for acute fractures or traumatic subluxations. 2. Severe levoscoliosis with apex at the L3-4 level and grade 1 spondylolisthesis of L5 and S1 without evidence for spondylolysis. 3. Multilevel broad-based disc bulges at the T12-L1 through L5-S1 levels with severe central canal stenosis at L2-3, moderate L3-4 and L4-5 and mild at L1-2 and L5-S1. 4. Multilevel neural foraminal stenosis at the T12-L1 through L5-S1 levels as noted above. 5. Multilevel facet and ligamentum flavum osteoarthropathy. PROCEDURE: MRI thoracic spine without contrast CLINICAL INDICATION: Follow-up thoracic fracture TECHNIQUE: An MRI of the thoracic spine was performed on a [employer] BI 3.0 Niru MRI scanner utilizing the following sequences: Sagittal and axial T1 weighted, sagittal and axial T2 weighted, and sagittal T2 fat saturation COMPARISON: CT lumbar spine 11/27/2016 FINDINGS: There is a normal kyphosis of the thoracic spine. The vertebral body heights are remarkable for 8 chronic appearing compression fracture deformity of the T10 vertebral body with approximately 50% vertebral body height loss centrally. A large Schmorl's node is also noted at the superior endplate of T10. No evidence for fractures of the T12 vertebral body are noted. The vertebral body signal intensities are normal. The intervertebral discs demonstrate disc desiccation at the T1-2 through L2-3 levels. The visualized posterior elements are intact and well aligned. The thoracic cord terminates normally at the L1-2 level. The visualized paravertebral soft tissues are normal. At all axial levels imaged in the thoracic spine, no focal disc extrusions, central canal, subarticular recess or neural foraminal stenosis is present. At T12-L1: A 2 mm annular bulge is present. The central canal, subarticular recess and neural foramen are patent. L1-2: A 4 mm moderate broad-based bulge is present. AP canal dimension is 9.7 mm. This results in a mild central, bilateral subarticular recess stenosis and mild right and moderate left neural foraminal stenosis. L2-3: A large 5 mm broad-based bulge is present. Mild bilateral facet arthropathy and facet effusions are present. AP canal dimension is approximately 6.1 mm. This results in a moderate central canal stenosis, bilateral severe subarticular recess stenosis and severe bilateral neural foraminal stenosis. IMPRESSION: 1. No evidence for acute fractures , traumatic subluxations or significant stenosis within the thoracic spine. 2. Chronic T10 vertebral body compression fracture with approximately 50% vertebral body height loss. 3. Multilevel broad-based bulges at the T12-L1 through L2-3 levels with moderate to severe central canal stenosis at L2-3 and mild at L1-2. LEONARDO SHETTY Nov 28, 2016 15:43
[2016-11-28] MEDS: SODIUM CHLORIDE 1 GM TAB PO SCH ×2 (16:37→21:48)
[2016-11-28] MEDS: morphine 2 MG INJ IV PRN (19:25)
[2016-11-28 20:43] VITALS: BP 115/61; RESP 20
[2016-11-28] MEDS: ATORVASTATIN 10 MG TAB PO SCH (21:48)
[2016-11-28] MEDS: CALCIUM/VITAMIN D (500/200) TAB PO SCH (21:48)
[2016-11-29 05:12] LABS: BASOPHILS % 0.1 % (0.0-2.0); EOSINOPHILS # 0.1 10^3/ul (0.0-0.5); EOSINOPHILS % 1.3 % (0.0-7.0); HEMATOCRIT 28.5 % (37.0-47.0); HEMOGLOBIN 9.7 g/dl (12.0-16.0); LYMPHOCYTES # 0.7 10^3/ul (0.8-2.9); LYMPHOCYTES % 7.5 % (15.0-51.0); MEAN CORPUSCULAR HEMOGLOBIN 29.4 pg (29.0-33.0); MEAN CORPUSCULAR VOLUME 86.4 fl (82.0-101.0); MONOCYTE # 1.3 10^3/ul (0.3-0.9); MONOCYTES % 13.7 % (0.0-11.0); NEUTROPHIL # 7.3 10^3/ul (1.6-7.5); NEUTROPHILS % 76.8 % (39.0-77.0); PLATELET COUNT 300 10^3/UL (140-415); RED CELL DISTRIBUTION WIDTH 14.2 % (11.5-14.5); WHITE BLOOD COUNT 9.5 10^3/ul (4.8-10.8)
[2016-11-29 05:48] LABS: MAGNESIUM 1.6 mg/dl (1.7-2.5); PHOSPHORUS 2.6 mg/dl (2.5-4.9)
[2016-11-29 05:54] LABS: CALCIUM 8.7 mg/dl (8.4-10.2); CREATININE 0.37 mg/dl (0.44-1.00); POTASSIUM 3.6 mmol/L (3.5-5.1)
[2016-11-29 07:10] VITALS: BP 130/63; RESP 17
[2016-11-29] MEDS: FERROUS SULFATE (EC) 325 MG TAB PO SCH (08:52)
[2016-11-29] MEDS: LISINOPRIL 10 MG TAB PO SCH (08:52)
[2016-11-29] MEDS: CALCIUM/VITAMIN D (500/200) TAB PO SCH ×2 (08:52→21:00)
[2016-11-29] MEDS: MULTIVITAMINS THERAPEUTIC TAB PO SCH (08:52)
[2016-11-29] MEDS ORDERED: POTASSIUM CHLORIDE (SR) 20 MEQ TAB PO STA (08:52)
[2016-11-29] MEDS: FAMOTIDINE 20 MG TAB PO SCH ×2 (08:52→21:00)
[2016-11-29] MEDS: SODIUM CHLORIDE 1 GM TAB PO SCH ×3 (08:52→21:00)
[2016-11-29] MEDS: HYDROCODONE/APAP (5/325) TAB PO PRN (08:53)
[2016-11-29] MEDS: MAGNESIUM HYDROXIDE 30ML CUP PO PRN (08:53)
[2016-11-29] MEDS: TAMOXIFEN 10 MG TAB PO SCH (09:08)
[2016-11-29] MEDS: ENOXAPARIN 40 MG/0.4 ML SYG SC SCH (09:08)
[2016-11-29] MEDS ORDERED: MAGNESIUM SULFATE 4 GM/100 ML 100 ML IVPB ONE (09:30)
[2016-11-29] MEDS: morphine 2 MG INJ IV PRN (10:43)
--- NOTE | 2016-11-29 11:49 | PN ---
Date/Time of Note Date/Time of Note DATE: 11/29/16 TIME: 11:42 Assessment/Plan VTE Prophylaxis VTE Prophylaxis Intervention: LMWH Lines/Catheters IV Catheter Type (from Nrs): Saline Lock Urinary Cath still in place: No Assessment/Plan Assessment/Plan 76-year-old female with: 1. Status post fall with T10 compression fracture chronic on MRI, inability to walk, patient with multiple falls, L4 compression fracture chronic. Appreciate Neurosurgery evaluation, no need for surgical intervention, PT eval and TLSO brace ordered. Pain control, PT Will need SNF placement for PT . 2. Hyponatremia, likely hypovolemic and also secondary to medications? but Na down to 125 with IVF, d/c IVF yesterday and Na down to 122 today despite 1L fluid restriction and started on NaCl tabs Monitor sodium level today and may need dose of Tolvaptan later if keeps trending down. 3. Hypokalemia: repleting K and Mag this AM. 4. Hypertension: Continue lisinopril, hydralazine as needed 5. Osteopenia: CA/VitD supplements. Prophylaxis: Lovenox for DVT prophylaxis, Pepcid for GI prophylaxis Disposition: Hyponatremia management and will need SNF placement when Na better Subjective 24 Hr Interval Summary Free Text/Dictation Patient doing ok but Na down to 122 this AM, monitoring Na level Otherwise patient will need SNF placement once Na stable Exam/Review of Systems Vital Signs Vitals Vital Signs Date Time Temp Pulse Resp B/P Pulse Ox O2 Delivery O2 Flow Rate FiO2 11/29/16 07:10 98.1 84 17 130/63 97 11/27/16 18:27 Room Air Intake and Output 11/28/16 11/28/16 11/29/16 15:00 23:00 07:00 Intake Total 100 ml 1800 ml 360 ml Output Total 600 ml 900 ml Balance 100 ml 1200 ml -540 ml Exam Constitutional: alert, frail, oriented Respiratory: clear to auscultation, normal air movement Cardiovascular: nl pulses, regular rate and rhythm Gastrointestinal: non-tender, soft Musculoskeletal: nl extremities to inspection Extremities: normal pulses, other (no edema, clubbing or cyanosis ) Neurological: [employer] II-XII intact, nl mental status, nl speech, other (limited strength exam due to compression fx ) Results Result Diagram: 11/29/1644211/29/16442 Results 24 hrs Laboratory Tests Test 11/28/16 12:49 11/29/16 04:43 Sodium Level 125 L 122 L White Blood Count 9.5 # Red Blood Count 3.30 L Hemoglobin 9.7 L Hematocrit 28.5 L Mean Corpuscular Volume 86.4 Mean Corpuscular Hemoglobin 29.4 Mean Corpuscular Hemoglobin Concent 34.0 Red Cell Distribution Width 14.2 Platelet Count 300 Mean Platelet Volume 10.0 Neutrophils % 76.8 Lymphocytes % 7.5 L Monocytes % 13.7 H Eosinophils % 1.3 Basophils % 0.1 Nucleated Red Blood Cells % 0.0 Neutrophils # 7.3 Lymphocytes # 0.7 L Monocytes # 1.3 H Eosinophils # 0.1 Basophils # 0.0 Nucleated Red Blood Cells # 0.0 Potassium Level 3.6 Chloride Level 95 L Carbon Dioxide Level 23 Anion Gap 8 Blood Urea Nitrogen 6 L Creatinine 0.37 L Glucose Level 131 Calcium Level 8.7 Phosphorus Level 2.6 Magnesium Level 1.6 L Medications Medications Current Medications Atorvastatin Calcium (Lipitor) 10 mg HS PO Last administered on 11/28/16 21:48 ; Admin Dose 10 MG; Start 11/27/16 at 21:00 Tamoxifen Citrate (Nolvadex) 20 mg DAILY PO Last administered on 11/29/16 09: 08; Admin Dose 20 MG; Start 11/28/16 at 09:00 Ondansetron HCl (Zofran Inj) 4 mg Q6H PRN IV NAUSEA AND/OR VOMITING; Start at 17:30 Acetaminophen (Tylenol Tab) 650 mg Q6H PRN PO PAIN LEVEL 1-3 OR FEVER; Start at 17:30 Acetaminophen/ Hydrocodone Bitart ([place] (5/325)) 1 tab Q6H PRN PO MODERATE PAIN LEVEL 4-6 Last administered on 11/29/16 08:53; Admin Dose 1 TAB; Start at 17:30 Acetaminophen/ Hydrocodone Bitart ([place] (5/325)) 2 tab Q6H PRN PO SEVERE PAIN LEVEL 7-10; Start 11/27/16 at 17:30 Morphine Sulfate (morphine) 2 mg Q4H PRN IV SEVERE PAIN LEVEL 7-10 Last administered on 11/29/16 10:43; Admin Dose 2 MG; Start 11/27/16 at 17:30 Docusate Sodium (Colace) 100 mg Q12H PRN PO CONSTIPATION; Start 11/27/16 at 17: 30 Magnesium Hydroxide (Milk Of Mag) 30 ml DAILY PRN PO CONSTIPATION Last administered on 11/29/16 08:53; Admin Dose 30 ML; Start 11/27/16 at 17:30 Bisacodyl (Dulcolax Supp) 10 mg DAILY PRN [place] CONSTIPATION; Start 11/27/16 at 17 :30 Famotidine (Pepcid) 20 mg Q12 PO Last administered on 11/29/16 08:52; Admin Dose 20 MG; Start 11/27/16 at 21:00 Enoxaparin Sodium (Lovenox) 40 mg DAILY SC Last administered on 11/29/16 09:08 ; Admin Dose 40 MG; Start 11/28/16 at 09:00 Multivitamins Therapeutic (Theragran) 1 tab DAILY PO Last administered on 08:52; Admin Dose 1 TAB; Start 11/28/16 at 09:00 Ferrous Sulfate (Ferrous Sulfate (Ec)) 325 mg DAILY PO Last administered on 08:52; Admin Dose 325 MG; Start 11/28/16 at 09:00 Hydralazine HCl (Apresoline) 10 mg Q8H PRN IV ELEVATED BLOOD PRESSURE; Start at 18:00 Lisinopril (Zestril) 10 mg DAILY PO Last administered on 11/29/16 08:52; Admin Dose 10 MG; Start 11/28/16 at 09:00 Calcium/Vitamin D (Oyster Shell/ Vit-D (500/200)) 1 tab BID PO Last administered on 11/29/16 08:52; Admin Dose 1 TAB; Start 11/28/16 at 21:00 Sodium Chloride 1 gm 1 gm TID PO Last administered on 11/29/16 08:52; Admin Dose 1 GM; Start 11/28/16 at 17:00 Magnesium Sulfate (Magnesium Sulfate 4 Gm/100 ml) 100 ml @ 25 mls/hr ONCE ONCE IVPB Last administered on 11/29/16 10:42; Admin Dose 25 MLS/HR; Start at 09:30; Stop 11/29/16 at 13:29 LEONARDO SHETTY Nov 29, 2016 11:49
[2016-11-29 16:00] VITALS: BP 134/64; RESP 20
[2016-11-29] MEDS ORDERED: TOLVAPTAN 15 MG TABLET PO ONE (19:00)
[2016-11-29] MEDS: ATORVASTATIN 10 MG TAB PO SCH (21:00)
[2016-11-29 21:57] VITALS: BP 150/71; RESP 19
[2016-11-30 02:47] VITALS: BP 121/59; RESP 19
[2016-11-30 04:12] LABS: ABNORMAL IP MESSAGE 1; BASOPHILS % 0.2 % (0.0-2.0); EOSINOPHILS # 0.1 10^3/ul (0.0-0.5); EOSINOPHILS % 0.5 % (0.0-7.0); HEMATOCRIT 29.1 % (37.0-47.0); HEMOGLOBIN 9.7 g/dl (12.0-16.0); LYMPHOCYTES # 0.6 10^3/ul (0.8-2.9); LYMPHOCYTES % 5.9 % (15.0-51.0); MEAN CORPUSCULAR HEMOGLOBIN 28.4 pg (29.0-33.0); MEAN CORPUSCULAR HGB CONC 33.3 g/dl (32.0-37.0); MEAN CORPUSCULAR VOLUME 85.1 fl (82.0-101.0); MEAN PLATELET VOLUME 9.3 fl (7.4-10.4); MONOCYTE # 1.5 10^3/ul (0.3-0.9); MONOCYTES % 15.3 % (0.0-11.0); NEUTROPHIL # 7.6 10^3/ul (1.6-7.5); NEUTROPHILS % 77.8 % (39.0-77.0); PLATELET COUNT 389 10^3/UL (140-415); RED BLOOD COUNT 3.42 10^6/ul (4.20-5.40); RED CELL DISTRIBUTION WIDTH 14.1 % (11.5-14.5); WHITE BLOOD COUNT 9.8 10^3/ul (4.8-10.8)
[2016-11-30 04:15] LABS: POSITIVE DIFF @See below
[2016-11-30 04:51] LABS: CALCIUM 9.2 mg/dl (8.4-10.2); CREATININE 0.39 mg/dl (0.44-1.00); POTASSIUM 3.7 mmol/L (3.5-5.1)
[2016-11-30] MEDS: HYDROCODONE/APAP (5/325) TAB PO PRN (06:27)
[2016-11-30] MEDS: MAGNESIUM HYDROXIDE 30ML CUP PO PRN (06:27)
[2016-11-30 07:42] VITALS: BP 115/70; RESP 16
[2016-11-30] MEDS: LISINOPRIL 10 MG TAB PO SCH (09:00)
[2016-11-30] MEDS: CALCIUM/VITAMIN D (500/200) TAB PO SCH (09:18)
[2016-11-30] MEDS: FAMOTIDINE 20 MG TAB PO SCH (09:18)
[2016-11-30] MEDS: MULTIVITAMINS THERAPEUTIC TAB PO SCH (09:18)
[2016-11-30] MEDS: SODIUM CHLORIDE 1 GM TAB PO SCH ×2 (09:18→15:22)
[2016-11-30] MEDS: FERROUS SULFATE (EC) 325 MG TAB PO SCH (09:18)
[2016-11-30] MEDS: TAMOXIFEN 10 MG TAB PO SCH (09:20)
[2016-11-30] MEDS: ENOXAPARIN 40 MG/0.4 ML SYG SC SCH (09:21)
--- NOTE | 2016-11-30 13:30 | PN ---
Date/Time of Note Date/Time of Note DATE: 11/30/16 TIME: 13:12 Assessment/Plan VTE Prophylaxis VTE Prophylaxis Intervention: LMWH Lines/Catheters IV Catheter Type (from Nrsg): Saline Lock Urinary Cath still in place: No Assessment/Plan Assessment/Plan 76-year-old female with: 1. Status post fall with T10 compression fracture chronic on MRI, inability to walk, patient with multiple falls, L4 compression fracture chronic. Appreciate Neurosurgery evaluation, no need for surgical intervention, PT eval and TLSO brace ordered. Pain control, PT SNF placement for PT and monitoring of Na . 2. Hyponatremia, unclear, euvolemic now and gave Tolvaptan x 1 with now Na 133. ? SIADH Continue 1L fluid restriction and NaCl tabs, monitor Na level at SNF. 3. Hypokalemia: repleting K and Mag this AM. 4. Hypertension: Continue lisinopril, hydralazine as needed 5. Osteopenia: Ca/VitD supplements. Prophylaxis: Lovenox for DVT prophylaxis, Pepcid for GI prophylaxis Disposition: SNF placement for PT and Na monitoring Subjective 24 Hr Interval Summary Free Text/Dictation Patient doing OK A little bit of PT done today Pain controlled Na better today, up to 133 post Tolvaptan 15 mg po x1 last night Exam/Review of Systems Vital Signs Vitals Vital Signs Date Time Temp Pulse Resp B/P Pulse Ox O2 Delivery O2 Flow Rate FiO2 11/30/16 07:42 98.3 92 16 115/70 96 11/27/16 18:27 Room Air Intake and Output 11/29/16 11/29/16 11/30/16 15:00 23:00 07:00 Intake Total 100 ml 840 ml 400 ml Output Total 1500 ml 2050 ml Balance 100 ml -660 ml -1650 ml Exam Constitutional: alert, frail, oriented Head: normocephalic Eyes: nl conjunctiva Respiratory: clear to auscultation, normal air movement Cardiovascular: nl pulses, regular rate and rhythm Gastrointestinal: non-tender, soft Musculoskeletal: nl extremities to inspection, nl gait and stance Extremities: normal pulses Neurological: PR[employer] LEAD II-XII intact, nl mental status, nl speech, nl strength Results Result Diagram: 11/30/16 0337 11/30/16 1159 Results 24 hrs Laboratory Tests Test 11/29/16 18:04 11/29/16 19:25 11/30/16 03:37 11/30/16 03:38 Sodium Level 122 L 125 L 131 L White Blood Count 9.8 Red Blood Count 3.42 L Hemoglobin 9.7 L Hematocrit 29.1 L Mean Corpuscular Volume 85.1 Mean Corpuscular Hemoglobin 28.4 L Mean Corpuscular Hemoglobin Concent 33.3 Red Cell Distribution Width 14.1 Platelet Count 389 # Mean Platelet Volume 9.3 Neutrophils % 77.8 H Lymphocytes % 5.9 L Monocytes % 15.3 H Eosinophils % 0.5 Basophils % 0.2 Nucleated Red Blood Cells % 0.0 Neutrophils # 7.6 H Lymphocytes # 0.6 L Monocytes # 1.5 H Eosinophils # 0.1 Basophils # 0.0 Nucleated Red Blood Cells # 0.0 Potassium Level 3.7 Chloride Level 98 Carbon Dioxide Level 29 Anion Gap 8 Blood Urea Nitrogen 4 L Creatinine 0.39 L Glucose Level 138 Calcium Level 9.2 Phosphorus Level 3.0 Magnesium Level 2.0 Test 11/30/16 11:59 Sodium Level 133 L Medications Medications Current Medications Atorvastatin Calcium (Lipitor) 10 mg HS PO Last administered on 11/29/16 21:00 ; Admin Dose 10 MG; Start 11/27/16 at 21:00 Tamoxifen Citrate (Nolvadex) 20 mg DAILY PO Last administered on 11/30/16 09: 20; Admin Dose 20 MG; Start 11/28/16 at 09:00 Ondansetron HCl (Zofran Inj) 4 mg Q6H PRN IV NAUSEA AND/OR VOMITING; Start at 17:30 Acetaminophen (Tylenol Tab) 650 mg Q6H PRN PO PAIN LEVEL 1-3 OR FEVER; Start at 17:30 Acetaminophen/ Hydrocodone Bitart ([place] (5/325)) 1 tab Q6H PRN PO MODERATE PAIN LEVEL 4-6 Last administered on 11/30/16 06:27; Admin Dose 1 TAB; Start at 17:30 Acetaminophen/ Hydrocodone Bitart ([place] (5/325)) 2 tab Q6H PRN PO SEVERE PAIN LEVEL 7-10; Start 11/27/16 at 17:30 Morphine Sulfate (morphine) 2 mg Q4H PRN IV SEVERE PAIN LEVEL 7-10 Last administered on 11/29/16 10:43; Admin Dose 2 MG; Start 11/27/16 at 17:30 Docusate Sodium (Colace) 100 mg Q12H PRN PO CONSTIPATION; Start 11/27/16 at 17: 30 Magnesium Hydroxide (Milk Of Mag) 30 ml DAILY PRN PO CONSTIPATION Last administered on 11/30/16 06:27; Admin Dose 30 ML; Start 11/27/16 at 17:30 Bisacodyl (Dulcolax Supp) 10 mg DAILY PRN [place] CONSTIPATION Last administered on 11/29/16 16:23; Admin Dose 10 MG; Start 11/27/16 at 17:30 Famotidine (Pepcid) 20 mg Q12 PO Last administered on 11/30/16 09:18; Admin Dose 20 MG; Start 11/27/16 at 21:00 Enoxaparin Sodium (Lovenox) 40 mg DAILY SC Last administered on 11/30/16 09:21 ; Admin Dose 40 MG; Start 11/28/16 at 09:00 Multivitamins Therapeutic (Theragran) 1 tab DAILY PO Last administered on 09:18; Admin Dose 1 TAB; Start 11/28/16 at 09:00 Ferrous Sulfate (Ferrous Sulfate (Ec)) 325 mg DAILY PO Last administered on 09:18; Admin Dose 325 MG; Start 11/28/16 at 09:00 Hydralazine HCl (Apresoline) 10 mg Q8H PRN IV ELEVATED BLOOD PRESSURE; Start at 18:00 Lisinopril (Zestril) 10 mg DAILY PO Last administered on 11/29/16 08:52; Admin Dose 10 MG; Start 11/28/16 at 09:00 Calcium/Vitamin D (Oyster Shell/ Vit-D (500/200)) 1 tab BID PO Last administered on 11/30/16 09:18; Admin Dose 1 TAB; Start 11/28/16 at 21:00 Sodium Chloride (Nacl) 1 gm TID PO Last administered on 11/30/16 09:18; Admin Dose 1 GM; Start 11/28/16 at 17:00 LEONARDO SHETTY Nov 30, 2016 13:23
--- NOTE | 2016-11-30 13:32 | PDOCDIS ---
Discharge Instructions CONDITION Patient Condition: Stable HOME CARE INSTRUCTIONS: Special Diet: REGULAR ACTIVITY: Activity Restrictions: Slowly Increase Activity FOLLOW UP/APPOINTMENTS Follow-up Plan Follow up with PCP within 1 to 2 weeks Needs sodium level followed PT and TLSO brace available for ambulation On 1L fluid restriction LEONARDO SHETTY Nov 30, 2016 13:32
[2016-11-30 14:27] VITALS: BP 147/66; RESP 16
[2016-11-30 20:01] VITALS: BP 134/64; RESP 20
== END 2016-11-30 20:40 | DRG 543 ==
LOC: E/R 09:12 → MS1 15:50
PROVIDERS: ADMIT Internal Medicine; ATTEND Internal Medicine
DX: M48.54XA Collapsed vertebra, not elsewhere classified, thoracic region, initial encounter for fracture (principal); M48.56XA Collapsed vertebra, not elsewhere classified, lumbar region, initial encounter for fracture; E87.1 Hypo-osmolality and hyponatremia; R64 Cachexia; M41.9 Scoliosis, unspecified; M51.25 Other intervertebral disc displacement, thoracolumbar region; Z68.1 Body mass index [BMI] 19.9 or less, adult; E87.6 Hypokalemia; I10 Essential (primary) hypertension; M85.80 Other specified disorders of bone density and structure, unspecified site; E78.5 Hyperlipidemia, unspecified; Z91.81 History of falling; Z60.2 Problems related to living alone; M43.17 Spondylolisthesis, lumbosacral region; M89.48 Other hypertrophic osteoarthropathy, other site; M51.27 Other intervertebral disc displacement, lumbosacral region
CPT/HCPCS: 71010; 72131; 72146; 72148; 72192; 80048; 80053; 80061; 83735; 84100; 84295; 84439; 84443; 85025; 85610; 85730; 97162; 97530; J1650; J2270; J3480; J7030; L0462